=== PATIENT | male | born 1945 | race Hispanic/Latino ===

== ENCOUNTER 2016-10-30 08:08 | Emergency (ER) | payer OTHER ==
[~2016-10-30] VITALS: Ht 175.3 cm; Wt 81.6 kg
[2016-10-30 10:43] VITALS: BP 116/64
--- NOTE | 2016-10-30 11:03 | ED NOSE COMPLAINT ---
History of Present Illness General Chief Complaint: General Adult Stated Complaint: NOSE BLEED X 2DAYS Source: patient Exam Limitations: no limitations Vital Signs & Intake/Output Vital Signs & Intake/Output Vital Signs Date Time Temp Pulse Resp B/P Pulse O2 O2 Flow FiO2 Ox Delivery Rate 10/30 1107 98 10/30 1043 97.6 104 18 116/64 96 10/30 0812 97.6 111 20 159/74 97 Room Air Allergies Coded Allergies: Penicillins (Severe, ANAPHYLAXIS 10/30/16) amoxicillin (Severe, ANAPHYLAXIS 10/30/16) Triage Note: 71 Y/O MALE C/O R SIDED EPISTAXIS X 2 NIGHTS DURING SLEEP. DENIES INJURIES OR TRAUMA. NO ACTIVE BLEEDING NOTED AT THIS TIME. Triage Nurses Notes Reviewed? yes HPI: Patient presents for evaluation of a nosebleed intermittently over the past 2 days in association with upper respiratory symptoms. Patient presented to the emergency department for evaluation of the intermittent nosebleeding episodes to make sure that there was nothing more serious going on. Patient fortunately is not actively bleeding at this time. He has been placing toilet paper into his nose to help stop the bleeding. He denies any associated dizziness, chest pain, shortness of breath or headaches. Patient has been suffering nasal congested and nonproductive cough along with the nosebleeding episodes. Patient describes the episodes as mild to moderate intensity and they improve with toilet paper and time. Past History Travel History Traveled to [place] past 21 day No Medical History Any Pertinent Medical History? see below for history Neurological: NONE EENT: NONE Cardiovascular: NONE Respiratory: NONE Gastrointestinal: NONE Hepatic: NONE Renal: NONE Musculoskeletal: NONE Psychiatric: NONE Endocrine: diabetes Blood Disorders: NONE Cancer(s): NONE MANAGER CHEMICAL/Reproductive: NONE History of MRSA: No History of VRE: No History of CDIFF: No Pneumonia Vaccine: 10/26/10 Influenza Vaccine: 06/23/13 Surgical History Surgical History: non-contributory Psychosocial History Who do you live with Spouse Services at Home None What is your primary language Somali Tobacco Use: Quit >30 days ago Family History Hx Contributory? No Review of Systems Review of Systems Constitutional: Reports: no symptoms. EENTM: Reports: see HPI. Respiratory: Reports: no symptoms. Cardiovascular: Reports: no symptoms. GI: Reports: no symptoms. Genitourinary: Reports: no symptoms. Musculoskeletal: Reports: no symptoms. Skin: Reports: no symptoms. Neurological/Psychological: Reports: no symptoms. Hematologic/Endocrine: Reports: no symptoms. Immunologic/Allergic: Reports: no symptoms. All Other Systems: Reviewed and Negative Physical Exam Physical Exam Nose: see below Comments: Gen.: Well-nourished, well-developed, no acute respiratory distress. Head: Normocephalic, atraumatic. Eyes: Normal inspection bilaterally Ears: Normal inspection bilaterally Nose: Right nostril: Mild mucosal inflammation and swelling without active bleeding. Throat/mouth : Moist mucosa, normal appearing oropharynx Neck: Supple, full range of motion, no goiter Heart: Regular rate and rhythm, no murmurs rubs or gallops Lungs: Clear to auscultation bilaterally with normal air entry Chest: Nontender Back: Normal range of motion Abdomen: Soft, nontender, nondistended, normal bowel sounds Extremities: Normal range of motion grossly, equal radial pulses, no cyanosis clubbing or edema Neurologic: Cranial nerves grossly intact, speech is clear Skin: warm and dry Psychiatric: Calm, cooperative, no apparent delusions or hallucinations Progress Differential Diagnoses I considered the following diagnoses in my evaluation of the patient: epistaxis, nasal trauma Plan of Care: see d/c instructions Initial ED EKG: none Comments: Patient evaluated by Dr. Lunsford as well during ED stay. Departure Departure Disposition: HOME OR SELF CARE Condition: Stable Clinical Impression Primary Impression: Acute anterior epistaxis Secondary Impressions: Upper respiratory infection, viral Referrals: CADEN OATES,KAPIL Angela (PCP/Family) JAMESON OATES,JANICE Gates Additional Instructions: Pinch your nostrils together for 15-20 minutes at a time for any further bleeding episodes, this will typically control the bleeding. He is not controlled after 2 rounds of pinching the nostrils please return to emergency department. Use Afrin nasal spray available [id number] along with a saline nasal spray to help keep the mucosa moist. Humidity in your home. Consider applying Vaseline to the inside of the nose 2-3 times per day. Follow- up with your primary care physician or an ear nose and throat doctor (such as JAMESON [phone]) if your bleeding episodes persist beyond the next 24-48 hours. Return if any concerns or sudden worsening. Thank you for choosing the [facility] Emergency Department for your care. It was a pleasure to serve you today. Jaydon Marley M.D. [facility] Departure Forms: Customer Survey General Discharge Information
== END 2016-10-30 11:00 ==
LOC: ERH 08:08
DX: R04.0 Epistaxis (principal); J06.9 Acute upper respiratory infection, unspecified; Z87.891 Personal history of nicotine dependence

== ENCOUNTER 2018-01-04 09:01 | Inpatient (IN) | payer OTHER ==
[~2018-01-04] VITALS: Ht 175.3 cm; Wt 87.5 kg
--- NOTE | 2018-01-04 09:28 | ED GI/GU/ABDOMINAL COMPLAINT ---
History of Present Illness General Chief Complaint: Abdominal Pain/Flank Pain Stated Complaint: ABD PAIN, DISTENTION, POSS SBO, Source: patient, old records, Exam Limitations: no limitations Vital Signs & Intake/Output Vital Signs & Intake/Output Vital Signs Date Time Temp Pulse Resp B/P B/P Pulse O2 O2 Flow FiO2 Mean Ox Delivery Rate 01/05 0536 98.0 90 20 130/64 96 Room Air 01/04 2151 99.2 95 18 138/60 98 Room Air 01/04 1830 99.1 101 20 142/60 94 Room Air 01/04 1727 98.8 98 16 142/65 98 Room Air 01/04 1600 98.7 104 18 145/74 96 Room Air 01/04 1354 98.1 107 18 151/65 01/04 1159 98.1 107 18 151/65 96 Room Air 01/04 0913 97.7 90 16 166/63 94 Room Air ED Intake and Output 01/05 0000 01/04 1200 Intake Total 1240 1000 Output Total 200 Balance 1040 1000 Intake, IV 1000 1000 Intake, Oral 240 Output, Urine 200 Patient 193 lb Weight Weight Estimated Measurement Method Allergies Coded Allergies: Penicillins (Severe, ANAPHYLAXIS 10/30/16) amoxicillin (Severe, ANAPHYLAXIS 10/30/16) Reconcile Medications Lisinopril 40 MG TABLET 1 TAB PO DAILY HEART (Reported) Metformin HCl 1,000 MG TABLET 1 TAB PO BID DIABETES (Reported) Pioglitazone HCl 30 MG TABLET 1.5 TAB PO DAILY DIABETES (Reported) Triage Note: PT TO ED C/O ABD PAIN SINCE YESTERDAY AM. ABD FEELS FIRM. LAST BM WAS YESTERDAY AND NORMAL PER PT. +N/-V/-D. Triage Nurses Notes Reviewed? yes Onset: Gradual Duration: hour(s):, continues in ED, getting worse, intermittent Quality/Severity: severe (SQUEEZING/TIGHTNESS) Location: generalized abdomen Radiation: no radiation Activities at Onset: none Prior Abdominal Problems: similar symptoms (DUE TO OBSTRUCTION) HPI: Patient presents for evaluation of a severe diffuse abdominal pain that began yesterday. The pain isn't intermittent severe tightness or squeezing sensation with associated nausea. Patient denies associated fever or vomiting or dysuria. Due to her prior large intestine resection he has chronic diarrhea but has not moved his bowels since yesterday (he did try Pepto-Bismol yesterday). Nothing seems to make him feel better. Past History Travel History Traveled to [place] past 21 day No Medical History Any Pertinent Medical History? see below for history Neurological: NONE EENT: NONE Cardiovascular: NONE Respiratory: NONE Gastrointestinal: COLECTOMY Hepatic: NONE Renal: NONE Musculoskeletal: NONE Psychiatric: NONE Endocrine: diabetes Blood Disorders: NONE Cancer(s): NONE NEWS ASSISTANT/Reproductive: NONE History of MRSA: No History of VRE: No History of CDIFF: No Pneumonia Vaccine: 10/26/10 Influenza Vaccine: 06/23/13 Surgical History Surgical History: non-contributory Psychosocial History Who do you live with Spouse Services at Home None What is your primary language Indonesian Tobacco Use: Never used Family History Hx Contributory? No Review of Systems Review of Systems Constitutional: Reports: no symptoms. EENTM: Reports: no symptoms. Respiratory: Reports: no symptoms. Cardiovascular: Reports: no symptoms. GI: Reports: see HPI. Genitourinary: Reports: no symptoms. Musculoskeletal: Reports: no symptoms. Skin: Reports: no symptoms. Neurological/Psychological: Reports: no symptoms. Hematologic/Endocrine: Reports: no symptoms. Immunologic/Allergic: Reports: no symptoms. All Other Systems: Reviewed and Negative Physical Exam Physical Exam Gastrointestinal: SEE BELOW Comments: Gen.: Well-nourished, well-developed, no acute respiratory distress. Head: Normocephalic, atraumatic. Eyes: Normal inspection bilaterally Ears: Normal inspection bilaterally Nose: Normal inspection Throat/mouth : Moist mucosa Neck: Supple, full range of motion, no goiter Heart: Regular rate and rhythm, no murmurs rubs or gallops Lungs: Clear to auscultation bilaterally with normal air entry Chest: Nontender Back: Normal range of motion Abdomen: Soft, epigastric and periumbilical tenderness with brief voluntary guarding but no rebound, nondistended, decreased bowel sounds, multiple old surgical scars, no clinical ventral hernias Extremities: Normal range of motion grossly, equal radial pulses, no cyanosis clubbing or edema Neurologic: Cranial nerves grossly intact, speech is clear Skin: warm and dry Psychiatric: Calm, cooperative, no apparent delusions or hallucinations Core Measures ACS in differential dx? No Sepsis Present: No Sepsis Focused Exam Completed? No Progress Differential Diagnosis: biliary colic, bowel obstruction, diverticulitis, hepatitis, ischemic bowel, inflamm bowel dis, pancreatitis, PUD/GERD, perforated viscous, SBO Plan of Care: Orders Procedure Date/time Status PHOSPHORUS 01/05 0700 Active MAGNESIUM 01/05 0700 Active CBC WITHOUT DIFFERENTIAL 01/05 0700 Active BASIC METABOLIC PANEL 01/05 0700 Active Nothing by Mouth 01/04 D Active Weight 01/04 1759 Complete Vital Signs 01/04 175 Active Teach/Educate 01/04 1759 Active Pain Treatment and Response 01/04 1759 Active Nutritional Intake, Monitor 01/04 1759 Active Isolation 01/04 1759 Active Intake & Output 01/04 1759 Active Patient Care Conference 01/04 1759 Active Activity/Ambulation 01/04 175 Active Patient Data 01/04 1606 Active Pathway - chart 01/04 1341 Active Intake & Output 01/04 1341 Active Code Status 01/04 1324 Active URINALYSIS 01/04 0927 Complete LIPASE 01/04 09 Complete COMPREHENSIVE METABOLIC PANEL 01/04 927 Complete CBC WITHOUT DIFFERENTIAL 01/04 927 Complete Admit to inpatient 01/04 UNK Active VTE Mechanical Prophylaxis 01/04 UNK Active Current Medications Sig/Jaren Start time Last Medication Dose Stop Time Status Admin Acetaminophen 1,000 MG Q6H 01/04 1815 CAN (Ofirmev) 01/05 1229 N/A 1 UNIT (No Carrier) Acetaminophen 1,000 MG Q6H 01/04 1730 AC 01/04 (Ofirmev) 01/05 1144 2108 N/A 1 UNIT (No Carrier) Insulin Human Regular 0 TIDAC/HS 01/04 1700 AC (NovoLIN R) Heparin Sodium 5,000 UNIT Q8 01/04 1400 AC 01/05 (Porcine) 0453 Lisinopril 40 MG DAILY 01/04 1335 AC 01/04 (Prinivil) 1354 Dextrose/Sodium 1,000 ML Q8H 01/04 1330 AC 01/04 Chloride 2104 (D5W-1/2 Normal Saline 1000ML) Laboratory Tests 01/04/18 1125: Urine Color YEL, Urine Clarity CLEAR, Urine pH 6.0, Ur Specific King 1.020, Urine Protein NEG, Urine Ketones 15 H, Urine Nitrite NEG, Urine Bilirubin NEG, Urine Urobilinogen 0.2, Ur Leukocyte Esterase NEG, Ur Microscopic EXAM NOT REQUIRED, Urine Hemoglobin NEG, Urine Glucose NEG 01/04/18 0945: Anion Gap 15, Estimated GFR > 60, BUN/Creatinine Ratio 17.5, Glucose 182 H, Calcium 10.0, Total Bilirubin 2.4 H, AST 45, ALT 44, Alkaline Phosphatase 73, Total Protein 8.0, Albumin 4.5, Globulin 3.5, Albumin/Globulin Ratio 1.3, Lipase 160, CBC w Diff NO MAN DIFF REQ, RBC 5.03, MCV 86.5, MCH 28.4, MCHC 32.8 L, RDW 15.2 H, MPV 8.1, Gran % 81.6 H, Lymphocytes % 12.1 L, Monocytes % 5.2, Eosinophils % 0.7, Basophils % 0.4, Absolute Granulocytes 5.2, Absolute Lymphocytes 0.8 L, Absolute Monocytes 0.3, Absolute Eosinophils 0, Absolute Basophils 0 Diagnostic Imaging: Discussed w/RAD: CT Scan. Radiology Impression: PATIENT: JAILENE MOREJON PRESENT AGE: 72 PATIENT ACCOUNT NO: [id number] : 44 LOCATION: [facility] ORDERING PHYSICIAN: Jaydon Marley MD SERVICE DATE: 01/04/18 EXAM TYPE: CAT - CT ABD & PELVIS W IV CONTRAST EXAMINATION: CT ABDOMEN AND PELVIS WITH CONTRAST CLINICAL INFORMATION: Prior large intestine resection with abdominal pain. Question obstruction COMPARISON: CT scan of the abdomen and pelvis dated 2013 TECHNIQUE: Multidetector volumetric imaging was performed of the abdomen and pelvis following IV administration of 95 mL of Optiray 320 intravenous contrast. Sagittal and coronal reformatted images were obtained on the technologist's workstation. DLP: 459 mGy-cm FINDINGS: LUNG BASES: There is some scarring or dependent atelectasis at both lung bases. LIVER, GALLBLADDER, AND BILIARY TREE: The liver is normal in size, shape, and attenuation. No focal hepatic lesion or biliary ductal dilatation is present. There is cholelithiasis with multiple large stones layering dependently near the gallbladder neck. There is no gallbladder wall edema or pericholecystic fluid. There is no intra or extrahepatic biliary ductal dilatation and no common bile duct stone is identified. PANCREAS: The pancreas is normal in appearance. There are a few punctate calcifications in the region of the pancreatic head. No other findings SPLEEN: Spleen is normal in size with no focal findings ADRENAL GLANDS: The adrenal glands are normal in appearance KIDNEYS AND URETERS: Both kidneys show symmetric enhancement. There is no mass. There is a 0.2 cm calculus at the upper pole of the right kidney. There is no hydronephrosis or hydroureter appreciated. No ureteral stone. BLADDER: Incompletely distended and normal in appearance GASTROINTESTINAL TRACT: The patient has had a prior colonic resection with an anastomosis at the level of the sigmoid colon in the right lower pelvis. The anastomosis appears intact and unchanged from the 2014 study. There is some disproportionate distention of the proximal small bowel loops in the mid abdomen with a transition zone extending to mildly thick-walled nondistended small bowel loops in the right mid and lower quadrant. This may represent a partial mechanical small bowel obstruction with adhesions and or associated mild small bowel inflammatory change in the right mid and lower quadrant. There is no pneumatosis, free air or free fluid. There is no discrete mass. There is mild gastric distention without evidence for obstruction of the gastric outlet. ABDOMINAL WALL: There is some diastases of the rectus muscles in the midline. No incarcerated hernia is seen. There is a right inguinal hernia containing fat LYMPH NODES: No bulky adenopathy is identified. VASCULAR: There is extensive calcification of a normal caliber abdominal aorta and branches PELVIC VISCERA: No mass is seen in the pelvis. There is no loculated fluid collection OSSEOUS STRUCTURES: No acute bony abnormality. There is degenerative disc disease in the lower lumbosacral spine IMPRESSION: 1. There are findings suggestive of partial mechanical small bowel obstruction with transition zone in the right mid and lower quadrant where there are some relatively decompressed and thick-walled edematous small bowel loops. No mass, pneumatosis or free air. Patient has had a prior colon resection with an intact anastomosis in the pelvis. 2. Cholelithiasis without evidence for acute cholecystitis or bile duct obstruction 3. Small nonobstructing right renal calculus. No hydronephrosis DICTATED BY: Sarah Rao MD DATE/TIME DICTATED:01/04/181054 CANDY SPREADER: ATIF DATE/TIME TRANSCRIBED:01/04/181054 CONFIDENTIAL, DO NOT COPY WITHOUT APPROPRIATE AUTHORIZATION. <Electronically signed in Other Vendor System> SIGNED BY: Sarah Rao MD 01/04/18 1124 Initial ED EKG: none Comments: 01/04/2018 11:46:28 AM patient's case discussed with Jose Khan MD. Departure Departure Disposition: STILL A PATIENT Condition: Stable Clinical Impression Primary Impression: Small bowel obstruction Referrals: Marcellus OATES,Saleem Angela (PCP/Family) Departure Forms: Customer Survey General Discharge Information Admission Note Spoke With: Bill OATES,Jose N. Documentation of Exam: Documentation of any treatments & extenuating circumstances including Concerns Regarding Discharge (functional status, medication knowledge or non-compliance, living conditions, etc.) that warrant an admission rather than observation: Patient presents with abdominal pain and nausea consistent with a small bowel obstruction. CAT scan confirms a small bowel obstruction place in this patient at risk of worsening obstruction, vomiting, worsening abdominal pain and intestinal perforation. This patient will need to be kept nothing by mouth and is therefore poor candidate for outpatient management. In addition he would likely return in worse clinical condition. He will require IV fluids to prevent dehydration and monitoring of vital signs for possibility of fever or hypotension. Patient will also require serial abdominal examinations to assess for improvement. If patient's symptoms do not improve with nothing by mouth status and IV fluids and surgical intervention should be considered. Given this patient's advanced age and prior surgical history along with his medical comorbidities I feel his treatment will be prolonged and complicated requiring a multiple day hospitalization.
[2018-01-04 09:58] LABS: ABSOLUTE BASOPHIL COUNT 0 /CUMM (0.0-0.2); ABSOLUTE EOSINOPHIL COUNT 0 /CUMM (0.0-0.7); ABSOLUTE GRANULOCYTE CT 5.2 /CUMM (1.4-6.5); ABSOLUTE LYMPH COUNT 0.8 /CUMM (1.2-3.4); ABSOLUTE MONOCYTE COUNT 0.3 /CUMM (0.10-0.60); BASOPHIL % 0.4 % (0.0-2.0); EOSINOPHIL % 0.7 % (0-5); GRANULOCYTE % 81.6 % (42.2-75.2); HEMATOCRIT 43.5 % (42-52); MEAN CORPUSCULAR HGB 28.4 PG (27.0-31.0); MEAN CORPUSCULAR HGB CONC 32.8 G/DL (33.0-37.0); MEAN CORPUSCULAR VOLUME 86.5 FL (80.0-94.0); MEAN PLATELET VOLUME 8.1 FL (7.4-10.4); PLATELET COUNT 82 /CUMM (130-400); RBC DISTRIBUTION WIDTH 15.2 % (11.5-14.5); RED BLOOD CELL CT 5.03 /CUMM (4.70-6.10); WHITE BLOOD CELL COUNT 6.3 /CUMM (4.8-10.8)
--- NOTE | 2018-01-04 11:24 | CT SCAN REPORT ---
EXAMINATION: CT ABDOMEN AND PELVIS WITH CONTRAST CLINICAL INFORMATION: Prior large intestine resection with abdominal pain. Question obstruction COMPARISON: CT scan of the abdomen and pelvis dated 11/19/2013 TECHNIQUE: Multidetector volumetric imaging was performed of the abdomen and pelvis following IV administration of 95 mL of Optiray 320 intravenous contrast. Sagittal and coronal reformatted images were obtained on the technologist's workstation. DLP: 459 mGy-cm FINDINGS: LUNG BASES: There is some scarring or dependent atelectasis at both lung bases. LIVER, GALLBLADDER, AND BILIARY TREE: The liver is normal in size, shape, and attenuation. No focal hepatic lesion or biliary ductal dilatation is present. There is cholelithiasis with multiple large stones layering dependently near the gallbladder neck. There is no gallbladder wall edema or pericholecystic fluid. There is no intra or extrahepatic biliary ductal dilatation and no common bile duct stone is identified. PANCREAS: The pancreas is normal in appearance. There are a few punctate calcifications in the region of the pancreatic head. No other findings SPLEEN: Spleen is normal in size with no focal findings ADRENAL GLANDS: The adrenal glands are normal in appearance KIDNEYS AND URETERS: Both kidneys show symmetric enhancement. There is no mass. There is a 0.2 cm calculus at the upper pole of the right kidney. There is no hydronephrosis or hydroureter appreciated. No ureteral stone. BLADDER: Incompletely distended and normal in appearance GASTROINTESTINAL TRACT: The patient has had a prior colonic resection with an anastomosis at the level of the sigmoid colon in the right lower pelvis. The anastomosis appears intact and unchanged from the 2014 study. There is some disproportionate distention of the proximal small bowel loops in the mid abdomen with a transition zone extending to mildly thick-walled nondistended small bowel loops in the right mid and lower quadrant. This may represent a partial mechanical small bowel obstruction with adhesions and or associated mild small bowel inflammatory change in the right mid and lower quadrant. There is no pneumatosis, free air or free fluid. There is no discrete mass. There is mild gastric distention without evidence for obstruction of the gastric outlet. ABDOMINAL WALL: There is some diastases of the rectus muscles in the midline. No incarcerated hernia is seen. There is a right inguinal hernia containing fat LYMPH NODES: No bulky adenopathy is identified. VASCULAR: There is extensive calcification of a normal caliber abdominal aorta and branches PELVIC VISCERA: No mass is seen in the pelvis. There is no loculated fluid collection OSSEOUS STRUCTURES: No acute bony abnormality. There is degenerative disc disease in the lower lumbosacral spine IMPRESSION: 1. There are findings suggestive of partial mechanical small bowel obstruction with transition zone in the right mid and lower quadrant where there are some relatively decompressed and thick-walled edematous small bowel loops. No mass, pneumatosis or free air. Patient has had a prior colon resection with an intact anastomosis in the pelvis. 2. Cholelithiasis without evidence for acute cholecystitis or bile duct obstruction 3. Small nonobstructing right renal calculus. No hydronephrosis
[2018-01-04] MEDS ORDERED: PIOGLITAZONE HC30 M1 PO (11:45)
[2018-01-04] MEDS ORDERED: LISINOPRIL40 M1 PO (11:45)
[2018-01-04] MEDS ORDERED: METFORMIN HCL1000 M1 PO (11:45)
[2018-01-04 18:30] VITALS: BP 142/60
--- NOTE | 2018-01-04 19:50 | History & Physical Pre-Op ---
General Information and HPI History of Present Illness: CC: Bowel obstruction HPI: 72-year-old diabetic nonsmoker who presents with abdominal pain discomfort nausea vomiting which he says is similar to previous one 4 years ago for which was managed nonoperatively he went home the next day. Originally he had a subtotal colectomy 2003 for large bowel obstruction secondary to stricture. This time he thinks it was caused by having both Vietnamese and [place] food in one day this past weekend. He had not been dehydrated or any unusual straining or recent flulike symptoms no significant episodes of similar since the previous. No similar symptoms in family members. He still feels pretty bloated and hasn't passed any gas but the abdominal pain and nausea has improved a little bit. Otherwise no changes bowel habits, weight or appetite. I've reviewed the [facility]. No history of GERD, PUD, bleeding problems, heart disease or issues with anesthesia. Family history negative for colorectal cancer. Allergies/Medications Allergies: Coded Allergies: Penicillins (Severe, ANAPHYLAXIS 10/30/16) amoxicillin (Severe, ANAPHYLAXIS 10/30/16) Home Med list Lisinopril 40 MG TABLET 1 TAB PO DAILY HEART (Reported) Metformin HCl 1,000 MG TABLET 1 TAB PO BID DIABETES (Reported) Pioglitazone HCl 30 MG TABLET 1.5 TAB PO DAILY DIABETES (Reported) Past History Medical History Blood Transfusion Hx: No Neurological: NONE EENT: NONE Cardiovascular: NONE Respiratory: NONE Gastrointestinal: COLECTOMY Hepatic: NONE Renal: NONE Musculoskeletal: NONE Psychiatric: NONE Endocrine: diabetes Blood Disorders: NONE Cancer(s): NONE CASE RESOLUTION SPECIALIST/Reproductive: NONE History of MRSA: No History of VRE: No History of CDIFF: No Isolation History: Standard Influenza Vaccine: 06/14/17 Surgical History Pertinent Surgical History: non-contributory, COLECTOMY Past Family/Social History Psychosocial History Services at Home None Smoking Status: Never Smoked Review of Systems Review of Systems: Constitutional: No fever, sweats or weight loss ENMT: No sore throat Cardiovascular: No chest pain, palpitations or leg swelling Respiratory: No shortness of breath, cough, or sputum or dyspnea on exertion GI: No GERD or bleeding per rectum : No dysuria or hematuria Musculoskeletal: No new muscle weakness, bone or joint pain Skin / Breast: No jaundice, rashes or itching Psychiatric: No history of drug or alcohol abuse no depression or anxiety Hematologic / lymphatic system: No problems with excessive bleeding, bruising, or blood clots Exam & Diagnostic Data Last 24 Hrs of Vital Signs/I&O I rev Vital Signs Date Time Temp Pulse Resp B/P B/P Pulse O2 O2 Flow FiO2 Mean Ox Delivery Rate 01/04 1830 99.1 101 20 142/60 94 Room Air 01/04 1727 98.8 98 16 142/65 98 Room Air 01/04 1600 98.7 104 18 145/74 96 Room Air 01/04 1354 98.1 107 18 151/65 01/04 1159 98.1 107 18 151/65 96 Room Air 01/04 0913 97.7 90 16 166/63 94 Room Air I rev Intake & Output 01/04 1600 01/04 0800 01/04 0000 Intake Total 2000 Output Total 200 Balance 1800 Intake, IV 2000 Output, Urine 200 Patient 193 lb Weight Physical Exam: Constitutional: pleasant, no acute distress, conversant Eyes: sclera anicteric ENMT: ears and nose atraumatic, moist mucous membranes, good dentition, no lip lesions Neck: Supple, trachea is midline, no cervical or supraclavicular adenopathy and no palpable thyromegaly Cardiovascular: S1, S2, no murmurs, no peripheral edema Respiratory: clear to auscultation with normal respiratory effort and no intercostal retractions GI: abdomen soft, distended mild diffuse tenderness no rebound or guarding, positive bowel sounds on auscultation, no palpable hepatosplenomegaly Extremities / lymphatics: symmetrically warm, free range of motion no peripheral edema, no cervical, supraclavicular, axillary, or inguinal adenopathy Musculoskeletal: Did not evaluate gait and station, no digital cyanosis, good muscle strength and tone no atrophy, motor grossly 5 out of 5 throughout Skin: no jaundice, no rashes warm, nondiaphoretic, no areas of erythema or induration Psychiatric: mood and affect are appropriate and alert and oriented to person place and time Last 24 Hrs of Labs/Jeremiah: I rev Laboratory Tests 01/04/18 1125: Urine Color YEL, Urine Clarity CLEAR, Urine pH 6.0, Ur Specific [place] 1.020, Urine Protein NEG, Urine Ketones 15 H, Urine Nitrite NEG, Urine Bilirubin NEG, Urine Urobilinogen 0.2, Ur Leukocyte Esterase NEG, Ur Microscopic EXAM NOT REQUIRED, Urine Hemoglobin NEG, Urine Glucose NEG 01/04/18 0945: Anion Gap 15, Estimated GFR > 60, BUN/Creatinine Ratio 17.5, Glucose 182 H, Calcium 10.0, Total Bilirubin 2.4 H, AST 45, ALT 44, Alkaline Phosphatase 73, Total Protein 8.0, Albumin 4.5, Globulin 3.5, Albumin/Globulin Ratio 1.3, Lipase 160, CBC w Diff NO MAN DIFF REQ, RBC 5.03, MCV 86.5, MCH 28.4, MCHC 32.8 L, RDW 15.2 H, MPV 8.1, Gran % 81.6 H, Lymphocytes % 12.1 L, Monocytes % 5.2, Eosinophils % 0.7, Basophils % 0.4, Absolute Granulocytes 5.2, Absolute Lymphocytes 0.8 L, Absolute Monocytes 0.3, Absolute Eosinophils 0, Absolute Basophils 0 Assessment/Plan Assessment/Plan: Studies: I reviewed the CT scans on PACS myself compared to previous today's versus 11/19/2013, they're very similar and shows proximal small bowel dilatation little more bowel gas this time and some distal collapsed no significant free fluid. Impression is small bowel obstruction presumably from adhesions from prior surgeries, often exacerbated by an unusual meal high in fiber or chewy food, or even straining. In the meantime will treat in routine nonoperative fashion with bowel rest, NG tube for decompression -we will hold off since he stopped vomiting, maintenance IV fluids and for the GI losses, monitor uo, electrolytes, vital signs, serial exams, labs, abdominal x-rays. Presently there are no peritoneal signs, if situation plateaus or worsens, especially if abdominal pain worsens in next 6-12 hours, might need urgent surgical intervention in the interest of bowel viability, but as I explained, most of the time it is not needed. Note thrombocytopenia noted no signs of bleeding or follow might be a reaction to the acute illness. As Ranked By This Provider Problem List: 1. SBO (small bowel obstruction) 2. Thrombocytopenia
[2018-01-04 21:51] VITALS: BP 138/60
[2018-01-05 05:36] VITALS: BP 130/64
--- NOTE | 2018-01-05 07:26 | PN- General Surgery ---
Subjective Subjective: Nurse reports multiple bms overnight. No complaints currently. Denies abdominal pain. Willing to try clears this morning. Objective Vital Signs and I&Os Vital Signs Date Time Temp Pulse Resp B/P B/P Pulse O2 O2 Flow FiO2 Mean Ox Delivery Rate 01/05 0536 98.0 90 20 130/64 96 Room Air 01/04 2151 99.2 95 18 138/60 98 Room Air 01/04 1830 99.1 101 20 142/60 94 Room Air 01/04 1727 98.8 98 16 142/65 98 Room Air 01/04 1600 98.7 104 18 145/74 96 Room Air 01/04 1354 98.1 107 18 151/65 01/04 1159 98.1 107 18 151/65 96 Room Air 01/04 0913 97.7 90 16 166/63 94 Room Air Intake & Output 01/05 0800 01/05 0000 01/04 1600 01/04 0800 01/04 0000 01/03 1600 Intake Total 7453 951 8343 Output Total 200 Balance 7015 750 4409 Intake, IV 1000 2000 Intake, Oral 240 Number 4 Bowel Movements Output, Urine 200 Patient 193 lb 193 lb Weight Weight Estimated Measurement Method Physical Exam: General - alert & oriented x 3. comfortable. no acute distress. Lungs - clear bilaterally. no w/r/r. Cardiac - s1s2. reg. Abdomen - soft. nontender. Extremities - warm bilaterally. no c/c/e. calves soft and nontender b/l. Current Medications: Current Medications Sig/Jaren Start time Last Medication Dose Route Stop Time Status Admin Acetaminophen 1,000 MG Q6H 01/04 1815 CAN N/A 1 UNIT IV 01/05 1229 Acetaminophen 1,000 MG Q6H 01/04 1730 AC 01/04 N/A 1 UNIT IV 01/05 1144 2108 Acetaminophen 0 .STK-MED ONE 01/04 1715 DC IV Dextrose/Sodium 1,000 ML Q8H 01/04 1330 r 01/04 Chloride IV 2104 Heparin Sodium 5,000 UNIT Q8 01/04 1400 AC 01/05 (Porcine) SC 0453 Heparin Sodium 0 .STK-MED ONE 01/04 1343 DC (Porcine) .ROUTE Hyoscyamine 0 .STK-MED ONE 01/04 0948 DC .ROUTE Hyoscyamine 0.25 MG ONCE ONE 01/04 0945 DC 01/04 SL 01/04 0946 0945 Insulin Aspart See Dose SEE ADMIN CRITERIA 01/04 1345 DC Insts (1) SC Insulin Human Regular 0 TIDAC/HS 01/04 1700 AC SC Ketorolac 15 MG ONCE ONE 01/04 2315 DC 01/04 Tromethamine IV 01/04 2316 2315 Lisinopril 0 .STK-MED ONE 01/04 1354 DC PO Lisinopril 40 MG DAILY 01/04 1335 AC 01/04 PO 1354 Morphine Sulfate 2 MG Q4P PRN 01/04 1815 DC IV Morphine Sulfate 0 .STK-MED ONE 01/04 1651 DC .ROUTE Morphine Sulfate 2 MG Q4P PRN 01/04 1345 DC IV Morphine Sulfate 4 MG Q4P PRN 01/04 1345 DC IV Morphine Sulfate 0 .STK-MED ONE 01/04 0939 DC .ROUTE Morphine Sulfate 4 MG ONCE ONE 01/04 0930 DC IV 01/04 0931 Ondansetron HCl 0 .STK-MED ONE 01/04 0939 DC .ROUTE Ondansetron HCl 4 MG ONCE ONE 01/04 0930 DC 01/04 IV 01/04 0931 0936 Potassium Chloride 10 MEQ ONCE ONE 01/04 1330 DC 01/04 IV 01/04 1331 1354 Sodium Chloride 1,000 ML BOLUS ONE 01/04 0930 DC 01/04 IV 01/04 1129 0936 Dose Instructions: (1)Insulin Aspart: SEE ADMIN/CRITERIA INSTRUCTIONS SS Results Last 48 Hours of Labs: Laboratory Tests 01/04 01/04 1125 0945 Chemistry Sodium (137 - 145 mmol/L) 143 Potassium (3.5 - 5.1 mmol/L) 3.6 Chloride (98 - 107 mmol/L) 101 Carbon Dioxide (22 - 30 mmol/L) 27 Anion Gap (5 - 16) 15 BUN (9 - 20 mg/dL) 14 Creatinine (0.7 - 1.2 mg/dL) 0.8 Estimated GFR (>60 ml/min) > 60 BUN/Creatinine Ratio (7 - 25 %) 17.5 Glucose (65 - 99 mg/dL) 182 H Calcium (8.4 - 10.2 mg/dL) 10.0 Total Bilirubin (0.2 - 1.3 mg/dL) 2.4 H AST (17 - 59 U/L) 45 ALT (21 - 72 U/L) 44 Alkaline Phosphatase (< 127 U/L) 73 Total Protein (6.3 - 8.2 g/dL) 8.0 Albumin (3.5 - 5.0 g/dL) 4.5 Globulin (1.9 - 4.2 gm/dL) 3.5 Albumin/Globulin Ratio (1.1 - 2.2 %) 1.3 Lipase (23 - 300 U/L) 160 Hematology CBC w Diff NO MAN DIFF REQ WBC (4.8 - 10.8 /CUMM) 6.3 RBC (4.70 - 6.10 /CUMM) 5.03 Hgb (14.0 - 18.0 G/DL) 14.3 Hct (42 - 52 %) 43.5 MCV (80.0 - 94.0 FL) 86.5 MCH (27.0 - 31.0 PG) 28.4 MCHC (33.0 - 37.0 G/DL) 32.8 L RDW (11.5 - 14.5 %) 15.2 H Plt Count (130 - 400 /CUMM) 82 L MPV (7.4 - 10.4 FL) 8.1 Gran % (42.2 - 75.2 %) 81.6 H Lymphocytes % (20.5 - 51.1 %) 12.1 L Monocytes % (1.7 - 9.3 %) 5.2 Eosinophils % (0 - 5 %) 0.7 Basophils % (0.0 - 2.0 %) 0.4 Absolute Granulocytes (1.4 - 6.5 /CUMM) 5.2 Absolute Lymphocytes (1.2 - 3.4 /CUMM) 0.8 L Absolute Monocytes (0.10 - 0.60 /CUMM) 0.3 Absolute Eosinophils (0.0 - 0.7 /CUMM) 0 Absolute Basophils (0.0 - 0.2 /CUMM) 0 Urines Urine Color (YEL,AMB,STR) YEL Urine Clarity (CLEAR) CLEAR Urine pH (5.0 - 8.0) 6.0 Ur Specific [place] (1.001 - 1.035) 1.020 Urine Protein (NEG,<30 MG/DL) NEG Urine Ketones (NEG) 15 H Urine Nitrite (NEG) NEG Urine Bilirubin (NEG) NEG Urine Urobilinogen (0.1 - 1.0 EU/dl) 0.2 Ur Leukocyte Esterase (NEG) NEG Ur Microscopic EXAM NOT REQUIRED Urine Hemoglobin (NEG) NEG Urine Glucose (N MG/DL) NEG Assessment/Plan Assessment/Plan This 72 year old male with hx dm, htn, multiple myeloma and associated thrombocytopenia, admitted for sbo yesterday likely secondary to adhesions, with multiple bms overnight try clears this morning. diabetic diet for lunch if tolerating clears decrease iv fluids. stop if tolerating clears will stop heparin sc in light of thrombocytopenia oob/ambulation encouraged if tolerating food for lunch, likely d/c home later today no need to f/u xray per Core Measures Venous Thromboembolism VTE Risk Factors Age>40 No Mechanical VTE Prophylaxis d/t N/A MechProphylax Ordered No VTE Pharm Prophylaxis d/t Platelets below ref range
--- NOTE | 2018-01-05 07:33 | Patient Discharge Instructions ---
Discharge Instructions General Discharge Information You were seen/treated for: small bowel obstruction You had these procedures: bowel rest, no surgery Watch for these problems: fever>101.3, increased pain, recurrent nausea/vomiting, dizziness, shortness of breath, chest pains Diet Continue normal diet: Yes Recommended Diet: Diabetic Activity Full Activity/No Limits: Yes Activity Self Limited: Yes Acute Coronary Syndrome Inclusion Criteria At DC or during hospital stay patient has or had the following: ACS DIAGNOSIS No Discharge Core Measures Meds if any: Prescribed or Continued at Discharge Meds if any: NOT Prescribed or Continued at Discharge Congestive Heart Failure Inclusion Criteria At DC or during hospital stay patient has or had the following: CHF DIAGNOSIS No Discharge Core Measures Meds if any: Prescribed or Continued at Discharge Meds if any: NOT Prescribed or Continued at Discharge Cerebrovascular accident Inclusion Criteria At DC or during hospital stay patient has or had the following: CVA/TIA Diagnosis No Discharge Core Measures Meds if any: Prescribed or Continued at Discharge Meds if any: NOT Prescribed or Continued at Discharge Venous thromboembolism Inclusion Criteria VTE Diagnosis No VTE Type NONE VTE Confirmed by (Test) NONE Discharge Core Measures - Per Current guidelines, there needs to be overlap - treatment for the first 5 days of Warfarin therapy. - If discharged on Warfarin prior to 5 days of - overlap therapy, the patient will need to be - assessed for post discharge needs including - *Post discharge parental anticoagulation - *Warfarin and/or parental anticoagulation education - *Follow up date to check INR post discharge At least 5 days overlap therapy as Inpatient No Meds if any: Prescribed or Continued at Discharge Note: Overlap Therapy is Warfarin and Anticoagulant Meds if any: NOT Prescribed or Continued at Discharge
[2018-01-05 08:16] VITALS: BP 130/64
[2018-01-05 09:15] LABS: ABSOLUTE BASOPHIL COUNT 0 /CUMM (0.0-0.2); ABSOLUTE EOSINOPHIL COUNT 0.1 /CUMM (0.0-0.7); ABSOLUTE GRANULOCYTE CT 2.1 /CUMM (1.4-6.5); ABSOLUTE LYMPH COUNT 0.6 /CUMM (1.2-3.4); ABSOLUTE MONOCYTE COUNT 0.3 /CUMM (0.10-0.60)
--- NOTE | 2018-01-05 09:32 | Discharge Summary ---
Visit Information Visit Dates Admission Date: 01/04/18 Discharge Date: 01/05/2018 Hospital Course Course Attending Physician: Bill OATES,Jose Alexandre Primary Care Physician: Marcellus OATES,Saleem Angela Hospital Course: Patient admitted yesterday from the ER with signs and symptoms of acute small bowel obstruction he's had this before this most likely from adhesions from prior surgery exacerbated by a meal he had stopped vomiting so we did not place an NG tube he was little distended yesterday evening started to pass little gas and overnight had 4 bowel movements his abdomen feels much softer no nausea no fever no sweats no abdominal pain Vital signs reviewed stable blood pressure 130/64 pulse 90 respirations 20 temperature 90.8 Constitutional: no acute distress no pain Eyes: sclera anicteric ENMT: moist mucous membranes Cardiovascular: S1-S2 no murmurs no peripheral edema Respiratory: clear to auscultation with normal respiratory effort and no intercostal retractions GI: abdomen soft nontender nondistended Extremities / lymphatics: free range of motion no peripheral edema Skin: no jaundice no rashes warm, nondiaphoretic Psychiatric: mood and affect are appropriate and alert and oriented to person place and time Labs today none yesterday labs showed no acidosis normal white count Impression is resolved small bowel obstruction and the situations where there is rapid improvement I feel that the medial is attributed the most so I told him he has to be careful what and how much she eats because of his tendency because of his prior surgeries and overall is still better to resolve nonoperatively. Avoid dehydration and avoid straining and avoid large portions of high-fiber or chewy food or candy also elect to follow-up with us in the office we may have to reimage him as an outpatient but based on how his recovered overnight I don't feel it's necessary today. Complications: None Allergies: Coded Allergies: Penicillins (Severe, ANAPHYLAXIS 10/30/16) amoxicillin (Severe, ANAPHYLAXIS 10/30/16) Disposition Summary Disposition Principal Diagnosis: Acute small bowel obstruction Additional Diagnosis: None acute Discharge Disposition: home or self care Discharge Instructions General Discharge Information Code Status: Full Code Patient's Diet: Discussed above Patient's Activity: Discussed above no heavy lifting Follow-Up Instructions/Appts: Office next week or sooner if symptoms recur Medications at Discharge Discharge Medications: Continue taking these medications: Metformin HCl (Metformin HCl) 1,000 MG TABLET 1 Tablet ORAL TWICE DAILY Qty = 180 Lisinopril (Lisinopril) 40 MG TABLET 1 Tablet ORAL DAILY Qty = 90 Pioglitazone HCl (Pioglitazone HCl) 30 MG TABLET 1.5 Tablet ORAL DAILY Qty = 60 Copies To: Bill OATES,Jose Alexandre
[2018-01-05 09:35] LABS: BASOPHIL % 0.7 % (0.0-2.0); EOSINOPHIL % 3.5 % (0-5); GRANULOCYTE % 66.9 % (42.2-75.2); MEAN CORPUSCULAR HGB 28.9 PG (27.0-31.0); MEAN CORPUSCULAR HGB CONC 33.8 G/DL (33.0-37.0); MEAN CORPUSCULAR VOLUME 85.5 FL (80.0-94.0); RED BLOOD CELL CT 4.15 /CUMM (4.70-6.10)
[2018-01-05 09:37] LABS: HEMATOCRIT 35.5 % (42-52); WHITE BLOOD CELL COUNT 3.1 /CUMM (4.8-10.8)
[2018-01-05 10:03] LABS: PLATELET COUNT 63 /CUMM (130-400)
== END 2018-01-05 13:50 | DRG 390 ==
LOC: ERH 09:01 → ERHI 14:09 → 2NA 14:09 → ENRESERV 15:37 → ENTRNSPT 17:30 → EDTRNSPTSTS 17:35 → EDTRNSPT 17:35 → 2NA 17:42 → CMPTRNSPT 17:53 → ENPENDDIS 01-05 07:48 → 2NA 01-05 13:50
PROVIDERS: Emergency Medicine; Physician Assistant
DX: K56.51 Intestinal adhesions [bands], with partial obstruction (principal); D69.6 Thrombocytopenia, unspecified; E11.8 Type 2 diabetes mellitus with unspecified complications; R10.9 Unspecified abdominal pain; Z79.84 Long term (current) use of oral hypoglycemic drugs; Z90.49 Acquired absence of other specified parts of digestive tract; I10 Essential (primary) hypertension; Z85.79 Personal history of other malignant neoplasms of lymphoid, hematopoietic and related tissues; Z88.1 Allergy status to other antibiotic agents; Z88.0 Allergy status to penicillin
CPT/HCPCS: 2NASP; 36592; 74177; 81003; 82436; 96361; 96372; 96374; 96375; J0131; J1644; J1815; J2405; J7042